=== PATIENT | male | born 1990 | race African-American/Black ===

== ENCOUNTER 2025-03-06 01:12 | Emergency (ER) | payer SELFPAY ==
[2025-03-06 01:16] VITALS: BP 131/91; PULSE 88; RESP 18; TEMP 36.8; O2SAT 98; BMI 33.3
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
[2025-03-06 02:25] VITALS: BP 128/94; PULSE 89; RESP 18; TEMP 36.7; O2SAT 96
--- NOTE | 2025-03-06 02:28 | ED.RN ---
Pt denies wanting to file workers comp. Patient story has changed from the nurses to Dr Mckeon to Registration. Patient states he doesn't want anything done and just wants to leave. Dr Mckeon aware, patient ambulates self out of department after registration is finished.
== END 2025-03-06 02:31 | disposition home or self-care (01) ==
LOC: ED 02:30
PROVIDERS: Emergency Provider Emergency Medicine; Visit Provider Emergency Medicine
DX: Z04.1 Encounter for examination and observation following transport accident (principal); F17.210 Nicotine dependence, cigarettes, uncomplicated
CPT/HCPCS: 99284